=== PATIENT | female | born 1940 | race Caucasian/White ===

== ENCOUNTER 2017-05-16 08:10 | Day surgery (SDC) | payer MEDICARE, BC ==
[2017-05-16] MEDS ORDERED: Sodium Chloride 0.9% 10 ML Syringe FLUSH PRN (08:15)
[2017-05-16] MEDS ORDERED: Propofol 200 MG/20 ML SDV IV ONE (10:00)
[2017-05-16] MEDS ORDERED: Lidocaine 1% 20 ML MDV INJECT ONE (10:00)
[2017-05-16 11:25] VITALS: BP 134/72
--- NOTE | 2017-05-17 09:10 | OR ---
DATE OF OPERATION: 05/16/2017 SURGEON: Cecilio Madrid MD PREOPERATIVE DIAGNOSIS: Cataract, right eye. POSTOPERATIVE DIAGNOSIS: Cataract, right eye. OPERATION PERFORMED: Phacoemulsification of cataract right eye with placement of an Prado, model ZCB00, 23.0 diopter, foldable, posterior chamber intraocular lens. MARKETING ADMIN: None. DESCRIPTION OF PROCEDURE: Peribulbar anesthetic was performed using a mixture of 2% lidocaine with Wydase. The patient was prepped and draped in the usual fashion. A 3 mm fornix based conjunctival flap was performed at the 10 o'clock position. Hemostasis was obtained using diathermy, and a 2.8 mm grooved near clear corneal incision was then made. A stab incision was made into the anterior chamber at the 12 o'clock position and a second stab wound incision was made underlying the grooved near clear corneal incision. Viscoat was instilled into the anterior chamber, and a continuous tear capsulotomy was performed. Hydrodissection was accomplished with balanced salt solution, and the nucleus was removed in a divide and conquer fashion. The remaining cortical material was removed with the irrigation and aspiration unit. Viscoat was instilled into the anterior chamber, and an Prado, model ZCB00, 23.0 diopter, foldable, posterior chamber intraocular lens was placed into the capsular bag, the haptics being positioned at the 1 and 7 o'clock positions. The residual Viscoat was removed from the anterior chamber and the anterior chamber reformed with balanced salt solution. The wound was checked and noted to be watertight. The conjunctiva was secured in its original position with diathermy. Alphagan and Maxitrol Ointment were then placed into the patient's eye. The patient tolerated the procedure well and it was without complication. Elapsed phacoemulsification time was 20.5 seconds. Postoperative instructions as related to activities as well as medications were reviewed with the patient. The patient was instructed to return to see me on the day following surgery for the first postoperative check. The patient was also instructed to contact me prior to that time if the patient were to have any problems. /[id number] DEG/MODL CC: DIEGO MARTÍNEZ PA-C MTDD
== END 2017-05-16 11:20 | disposition home or self-care (01) ==
LOC: FB.SDS 08:10
PROVIDERS: ATTEND Ophthalmology
DX: H26.9 Unspecified cataract (principal); N18.9 Chronic kidney disease, unspecified; Z79.899 Other long term (current) drug therapy; Z98.890 Other specified postprocedural states; F17.210 Nicotine dependence, cigarettes, uncomplicated
CPT/HCPCS: 00142; 66984; A4217; C1780; J2704; J7050

== ENCOUNTER 2017-06-13 08:15 | Day surgery (SDC) | payer MEDICARE, BC ==
[~2017-06-13 08:15] MED LIST: Sodium Chloride 0.9% 10 ML Syringe FLUSH PRN
[2017-06-13] MEDS ORDERED: Propofol 200 MG/20 ML SDV IV ONE (10:00)
[2017-06-13 11:18] VITALS: BP 145/65
--- NOTE | 2017-06-14 07:29 | OR ---
DATE OF OPERATION: 06/13/2017 SURGEON: Cecilio Madrid MD PREOPERATIVE DIAGNOSIS: Cataract, left eye. POSTOPERATIVE DIAGNOSIS: Cataract, left eye. OPERATION PERFORMED: Phacoemulsification of cataract, left eye, with placement of an Prado, model ZCB00 23.5 diopter, foldable posterior chamber intraocular lens. INDUSTRIAL CONTROLLER: None. DESCRIPTION OF PROCEDURE: Peribulbar anesthetic was performed using a mixture of 2% lidocaine with Wydase. The patient was prepped and draped in the usual fashion. A 3 mm fornix based conjunctival flap was performed at the 10 o'clock position. Hemostasis was obtained using diathermy, and a 2.8 mm grooved near clear corneal incision was then made. A stab incision was made into the anterior chamber at the 12 o'clock position and a second stab wound incision was made underlying the grooved near clear corneal incision. Viscoat was instilled into the anterior chamber, and a continuous tear capsulotomy was performed. Hydrodissection was accomplished with balanced salt solution, and the nucleus was removed in a divide and conquer fashion. The remaining cortical material was removed with the irrigation and aspiration unit. Viscoat was instilled into the anterior chamber, and Prado, model ZCB00 23.5 diopter, foldable, posterior chamber intraocular lens was placed into the capsular bag, the haptics being positioned at the 1 and 7 o'clock positions. The residual Viscoat was removed from the anterior chamber and the anterior chamber reformed with balanced salt solution. The wound was checked and noted to be watertight. The conjunctiva was secured in its original position with diathermy. Alphagan and Maxitrol Ointment were then placed into the patient's eye. The patient tolerated the procedure well and it was without complication. Elapsed phacoemulsification time was 28.3 seconds. Postoperative instructions as related to activities, as well as medications, were reviewed with the patient. The patient was instructed to return to see me on the day following surgery for the first postoperative check. The patient was also instructed to contact me prior to that time if the patient were to have any problems. /[id number] DEG/MODL CC: DIEGO MARTÍNEZ PA-C MTDD
== END 2017-06-13 11:40 | disposition home or self-care (01) ==
LOC: FB.SDS 08:15
PROVIDERS: ATTEND Ophthalmology
DX: H26.9 Unspecified cataract (principal); N28.9 Disorder of kidney and ureter, unspecified; Z98.890 Other specified postprocedural states; F17.210 Nicotine dependence, cigarettes, uncomplicated; Z79.899 Other long term (current) drug therapy
CPT/HCPCS: 00142; 66984; A4217; C1780; J2704; J7050

== ENCOUNTER 2020-07-12 21:11 | Observation (INO) | payer MEDICARE, BC ==
--- NOTE | 2020-07-12 21:52 | EDM.PDOC ---
ED HPI GENERAL MEDICAL PROBLEM - General Chief Complaint: Gastrointestinal Problem Stated Complaint: RECTAL BLEEDING Time Seen by Provider: 07/12/20 21:50 Source of Information: Reports: Patient History Limitations: Reports: No Limitations - History of Present Illness INITIAL COMMENTS - FREE TEXT/NARRATIVE: 79-year-old female who reports that at a probably 1:59 PM today she had a bowel movement and she noted that it was somewhat darker than her normal bowel movements that she really didn't think much of it. She had been feeling well and has had no weakness or dizziness. She had no abdominal pain. No fevers or chills. She states that at about 7:30 to 8 PM tonight she ate a [employer] burger and following this she began to feel the urge to defecate with some mild mid abdominal cramping and she had a bowel movement and it was a large amount that was very watery and she noted that it was red appearing and that there were some clots in it and it smelled bad. She noted more with wiping. There was no pain in her perianal area. She has pain now but rates that mild cramping right before she had the bowel movement as a 1-2/10. It did not radiate. She has had no dysuria or hematuria. Bodyaches. No back pain. No cough or difficulty breathing. She feels well right now but she is somewhat concerned about the bleeding. She has never had anything like this before. She has had a colonoscopy in the past and it was reportedly negative. Since she has been in the emergency department she has had another bloody and watery stool. She states she does take Aleve, one twice daily, every day. There are no other associated signs or symptoms. There are no other modifying factors. 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: Other (see below) (Nothing.) - Related Data Allergies Allergy/AdvReac Type Severity Reaction Status Date / Time No Known Allergies Allergy Verified 07/12/20 23:30 Home Meds: Home Meds Calcium Carbonate/Vitamin D3 [Calcium 600 + Vit D Tablet] 1 each PO DAILY 05/15/17 [History] Naproxen Sodium [Aleve] 220 mg PO BID PRN 05/15/17 [History] Past Medical History HEENT History: Reports: Cataract Genitourinary History: Reports: Renal Calculus Musculoskeletal History: Reports: Other (See Below) Other Musculoskeletal History: EXTRAPYRAMIDAL DISEASE AND ABNORMAL MOVEMENT DISORDER, ARTHROPATHY ASSOCIATED WITH HELMINTHIASIS, PELVIC REGION AND THIGH, RESTLESS LEG SYNDROME Dermatologic History: Reports: Seborrheic Dermatitis, Other (See Below) Other Dermatologic History: HEALING CUT RIGH LOWER LEG - Past Surgical History HEENT Surgical History: Reports: Cataract Surgery GI Surgical History: Reports: Colonoscopy Female Surgical History: Reports: Cystoscopy, Kidney stone extraction Social & Family History - Family History Family Medical History: Noncontributory - Tobacco Use Tobacco Use Status *Q: Current Every Day Tobacco User - Caffeine Use Caffeine Use: Reports: Coffee - Alcohol Use Alcohol Use History: No - Living Situation & Occupation Living situation: Reports: Occupation: Retired ED ROS GENERAL - Review of Systems Review Of Systems: See Below Constitutional: Reports: Fatigue. Denies: Fever, Chills, Malaise HEENT: Reports: No Symptoms Respiratory: Reports: No Symptoms Cardiovascular: Reports: No Symptoms Endocrine: Reports: No Symptoms GI/Abdominal: Reports: Hematochezia. Denies: Nausea, Vomiting : Reports: No Symptoms Musculoskeletal: Reports: No Symptoms Skin: Reports: No Symptoms Neurological: Reports: No Symptoms Psychiatric: Reports: Anxiety Hematologic/Lymphatic: Reports: No Symptoms (No chronic anticoagulation.) Immunologic: Reports: No Symptoms ED EXAM, GI/ABD - Physical Exam Exam: See Below Exam Limited By: No Limitations General Appearance: Alert, WD/WN, No Apparent Distress, Anxious Eyes: Bilateral: Normal Appearance (Sclera are anicteric), EOMI Ears: Normal External Exam, Hearing Grossly Normal Nose: Normal Inspection, Normal Mucosa, No Blood Throat/Mouth: Normal Inspection, Normal Lips, Normal Oropharynx, Normal Voice, No Airway Compromise Head: Atraumatic, Normocephalic Neck: Normal Inspection, Supple, Non-Tender, Full Range of Motion Respiratory/Chest: No Respiratory Distress, Lungs Clear, Normal Breath Sounds, No Accessory Muscle Use, Chest Non-Tender Cardiovascular: Normal Peripheral Pulses, Regular Rate, Rhythm, No Murmur GI/Abdominal Exam: Normal Bowel Sounds, Soft, Non-Tender, No Organomegaly, No Mass Rectal (Female) Exam: Bloody Stool Back Exam: Normal Inspection, Full Range of Motion Extremities: Normal Range of Motion, Non-Tender, No Pedal Edema, Normal Capillary Refill, Other (Some chronic venous stasis on both lower legs anteriorly.) Neurological: Alert, Oriented, CN II-XII Intact, Normal Cognition, No Motor/Sensory Deficits Psychiatric: Normal Affect Skin Exam: Warm, Dry, Intact, Normal Color, No Rash #1 Interpretation EKG Date: 07/13/20 Time: 00:57 Rhythm: NSR Rate (Beats/Min): 81 [place]: Normal P-Wave: Present QRS: Normal ST-T: Normal QT: Normal Comparison: NA - No Prior EKG EKG Interpretation Comments: Normal EKG. Course - Vital Signs Last Recorded V/S: Last Vital Signs Temp 36.6 C 07/12/20 21:56 Pulse 94 07/12/20 21:56 Resp 16 07/12/20 21:56 BP 160/70 H 07/12/20 21:56 Pulse Ox 98 07/12/20 21:56 Orthostatic Blood Pressure [ 157/67 Standing] Orthostatic Blood Pressure [ 141/79 Sitting] Orthostatic Blood Pressure [ 151/72 Supine] - Orders/Labs/Meds Orders: Active Orders 24 hr Category Date Time Status EKG Documentation Completion [RC] ASDIRECTED Care 07/13/20 00:38 Active Abdomen Pelvis w Cont [CT] Stat Exams 07/12/20 23:14 Taken Sodium Chloride 0.9% [Saline Flush] Med 07/12/20 21:56 Active 10 ml FLUSH ASDIRECTED PRN Peripheral IV Insertion Adult [OM.PC] Routine Oth 07/12/20 21:56 Ordered EKG 12 Lead [EK] Routine Ther 07/13/20 00:37 Ordered Medication Orders Sodium Chloride (Saline Flush) 10 ml FLUSH ASDIRECTED PRN PRN Reason: Keep Vein Open Last Admin: 07/12/20 22:29 Dose: 10 ml Documented by: SAPNA Labs: Laboratory Tests 07/12/20 07/12/20 07/12/20 Range/Units 22:25 22:25 22:25 WBC 10.7 (4.5-12.0) X10-3/uL RBC 4.92 (3.23-5.20) x10(6)uL Hgb 15.3 (11.5-15.5) g/dL Hct 44.9 (30.0-51.3) % MCV 91.3 (80-96) fL MCH 31.1 (27.7-33.6) pg MCHC 34.1 (32.2-35.4) g/dL RDW 13.8 (11.5-15.5) % Plt Count 243 (125-369) X10(3)uL MPV 8.9 (7.4-10.4) fL Neut % (Auto) 67.5 (46-82) % Lymph % (Auto) 19.7 (13-37) % [place] % (Auto) 8.9 (4-12) % Eos % (Auto) 3 (1.0-5.0) % Baso % (Auto) 1 (0-2) % Neut # (Auto) 7.2 (1.6-8.3) # Lymph # (Auto) 2.1 (0.6-5.0) # [place] # (Auto) 1.0 (0.0-1.3) # Eos # (Auto) 0.3 (0.0-0.8) # Baso # (Auto) 0.1 (0.0-0.2) # Sodium 140 (135-145) mmol/L Potassium 4.3 (3.5-5.3) mmol/L Chloride 104 (100-110) mmol/L Carbon Dioxide 28 (21-32) mmol/L BUN 31 H (7-18) mg/dL Creatinine 1.1 H (0.55-1.02) mg/dL Est Cr Clr Drug Dosing 37.55 mL/min Estimated GFR (MDRD) 48 L (>60) BUN/Creatinine Ratio 28.2 H (9-20) Glucose 150 H (80-116) mg/dL Calcium 9.6 (8.6-10.2) mg/dL Magnesium 1.9 (1.8-2.5) mg/dL Total Bilirubin 0.4 (0.1-1.3) mg/dL AST 11 (5-25) IU/L ALT 15 (12-36) U/L Alkaline Phosphatase 81 (56-112) IU/L C-Reactive Protein 0.4 L (0.5-0.9) mg/dL Total Protein 6.6 (6.0-8.0) g/dL Albumin 3.3 (3.2-4.6) g/dL Globulin 3.3 g/dL Albumin/Globulin Ratio 1.0 Blood Type Gel Antibody Screen 07/12/20 Range/Units 22:25 WBC (4.5-12.0) X10-3/uL RBC (3.23-5.20) x10(6)uL Hgb (11.5-15.5) g/dL Hct (30.0-51.3) % MCV (80-96) fL MCH (27.7-33.6) pg MCHC (32.2-35.4) g/dL RDW (11.5-15.5) % Plt Count (125-369) X10(3)uL MPV (7.4-10.4) fL Neut % (Auto) (46-82) % Lymph % (Auto) (13-37) % [place] % (Auto) (4-12) % Eos % (Auto) (1.0-5.0) % Baso % (Auto) (0-2) % Neut # (Auto) (1.6-8.3) # Lymph # (Auto) (0.6-5.0) # [place] # (Auto) (0.0-1.3) # Eos # (Auto) (0.0-0.8) # Baso # (Auto) (0.0-0.2) # Sodium (135-145) mmol/L Potassium (3.5-5.3) mmol/L Chloride (100-110) mmol/L Carbon Dioxide (21-32) mmol/L BUN (7-18) mg/dL Creatinine (0.55-1.02) mg/dL Est Cr Clr Drug Dosing mL/min Estimated GFR (MDRD) (>60) BUN/Creatinine Ratio (9-20) Glucose (80-116) mg/dL Calcium (8.6-10.2) mg/dL Magnesium (1.8-2.5) mg/dL Total Bilirubin (0.1-1.3) mg/dL AST (5-25) IU/L ALT (12-36) U/L Alkaline Phosphatase (56-112) IU/L C-Reactive Protein (0.5-0.9) mg/dL Total Protein (6.0-8.0) g/dL Albumin (3.2-4.6) g/dL Globulin g/dL Albumin/Globulin Ratio Blood Type A POSITIVE Gel Antibody Screen Negative Meds: Medications Generic Name Dose Route Start Last Admin Trade Name Addison PRN Reason Stop Dose Admin Sodium Chloride 10 ml 07/12/20 21:56 07/12/20 22:29 Saline Flush FLUSH 10 ml ASDIRECTED PRN Administration Keep Vein Open Discontinued Medications Generic Name Dose Route Start Last Admin Trade Name Freq PRN Reason Stop Dose Admin Sodium Chloride 500 mls @ 999 mls/hr 07/12/20 23:15 07/12/20 23:41 Normal Saline IV 07/12/20 23:45 999 mls/hr .BOLUS ONE Administration Iopamidol 100 ml 07/12/20 23:17 07/12/20 23:32 Isovue-370 (76%) IV 07/12/20 23:18 100 ml . DIRECTED ONE Administration Pantoprazole Sodium 40 mg 07/13/20 00:38 Protonix Iv IVPUSH 07/13/20 00:39 ONETIME ONE - Radiology Interpretation Free Text/Narrative:: CT scan of the abdomen and pelvis shows colonic diverticulosis without diverticulitis. There was no evidence of appendicitis or bowel obstruction. There is wall thickening of a segment of the mid transverse colon that could be do to either a colonic lesion or colitis. There is also mild mucosal enhancement in the duodenal bulb and proximal descending duodenum reassociated with either peptic ulcer disease or duodenitis. There was also some high density within the renal collecting systems that was concerning for either contrast or blood products and the radiologist recommended further urologic evaluation to exclude neoplasm. - Re-Assessments/Exams Free Text/Narrative Re-Assessment/Exam: 07/13/20 23:00: The patient has had one other bright red blood and watery stool and she remained hemodynamically stable. The stool was sent for C. difficile testing. I will be sending the patient for CT scan of her abdomen and pelvis with IV contrast. 07/13/20 00:40: The CT scan of the abdomen and pelvis did show some findings that could either be colitis or a colonic lesion. There is also some concern about a duodenal problem and a urothelial problem. The patient has had one further bloody stool which was very minimal and only a small amount of blood with air. She remains pretty much symptom free with no pain now and no weakness or dizziness. The C. difficile was also negative. Because of the number of bright red blood stools that she has had, I feel that she should be admitted for continued close observation and serial hemoglobins I will give the patient protonic 40 mg IV. I discussed all this with the patient and she would be in agreement with this plan. It is unclear at this point as to whether the patient will need a greater then 2 midnight hospital stay. She does need close monitoring over the next 12-24 hours and she may need further GI evaluation. I discussed this with the patient and she would be in agreement with this. I will place admission orders and care the patient will go to Dr. Mcgarry at 7 AM on 07/13/2020. Departure - Departure Time of Disposition: 01:03 Disposition: Refer to Observation Condition: Fair (Stable) Clinical Impression: Rectal bleeding GI hemorrhage Qualifiers: GI bleed type/associated pathology: unspecified gastrointestinal hemorrhage type Qualified Code(s): K92.2 - Gastrointestinal hemorrhage, unspecified - Discharge Information Referrals: Esdras Salter MD [Primary Care Provider] - Forms: ED Department Discharge Sepsis Event Note (ED) - Focused Exam Vital Signs: Vital Signs Temp Pulse Resp BP Pulse Ox 07/12/20 21:56 36.6 C 94 16 160/70 H 98 07/12/20 21:22 36.6 C 100 16 149/70 H 98 07/12/20 21:13 36.6 C 98 16 149/70 H 98 - My Orders Last 24 Hours: My Active Orders 07/12/20 21:56 Sodium Chloride 0.9% [Saline Flush] 10 ml FLUSH ASDIRECTED PRN Peripheral IV Insertion Adult [OM.PC] Routine 07/12/20 23:14 Abdomen Pelvis w Cont [CT] Stat 07/13/20 00:37 EKG 12 Lead [EK] Routine 07/13/20 00:38 EKG Documentation Completion [RC] ASDIRECTED - Assessment/Plan Last 24 Hours: My Active Orders 07/12/20 21:56 Sodium Chloride 0.9% [Saline Flush] 10 ml FLUSH ASDIRECTED PRN Peripheral IV Insertion Adult [OM.PC] Routine 07/12/20 23:14 Abdomen Pelvis w Cont [CT] Stat 07/13/20 00:37 EKG 12 Lead [EK] Routine 07/13/20 00:38 EKG Documentation Completion [RC] ASDIRECTED
[2020-07-12] MEDS: Sodium Chloride 0.9% 10 ML Syringe FLUSH PRN (22:29)
[2020-07-12] MEDS ORDERED: Sodium Chloride 0.9% 500 ML IV ONE (23:15)
[2020-07-12] MEDS ORDERED: Iopamidol 755 Mg/ML 100 ML Bottle IV ONE (23:17)
[2020-07-13] MEDS ORDERED: Pantoprazole 40 MG Vial IVPUSH ONE (00:38)
[2020-07-13] MEDS ORDERED: Ondansetron 4 MG/2 ML SDV IV PRN (01:06)
[2020-07-13] MEDS ORDERED: Sodium Chloride 0.9% 1,000 ML IV SCH (01:15)
[2020-07-13] MEDS ORDERED: Pantoprazole 40 MG Vial IVPUSH SCH (12:00)
[2020-07-13] MEDS: Sodium Chloride 0.9% 10 ML Syringe FLUSH PRN (12:28)
--- NOTE | 2020-07-13 13:21 | HP ---
ADMISSION DATE: 07/13/2020 CHIEF COMPLAINT: Bloody stool. HISTORY OF PRESENT ILLNESS: Mrs. Foley is an 79-year-old woman from [place] with a history of osteoarthritis and otherwise excellent health. According to the patient, yesterday, she noted a dark stool in the morning and then, later in the afternoon, a very, very dark stool that she thought was very unusual. When she flushed the toilet, she noted some blood coming out of the stool. Along with this, she had some epigastric cramping and general unsettled feeling to her abdomen. She came into the emergency room where she was evaluated by Dr. Jones and found to be hemodynamically stable, but she had to 2 additional bloody stools while in the emergency room. She is examined this morning in her bed and is bright, alert, a good historian, and feels healthy. She has been taking Aleve 1 to 2 daily for the past few years for her arthritis. She is on no other medications. She has no prior history of stomach ulcer, bleeding disorder, etc. PAST MEDICAL HISTORY: Osteoarthritis, worst in her left hip, but also includes her right hip and her lumbar spine. She has a history of a large kidney stone in 2010 that required 2 open surgeries, a lithotripsy, and a ureteroscopy. No subsequent problems since that. She is 5, para 5, with normal deliveries. No blood transfusions, jaundice, or hepatitis. MEDICATIONS: Aleve 1 to 2 daily. ALLERGIES: None known. HABITS: Two to three cigarettes per day. Four to five cups of coffee per day. No alcohol. FAMILY HISTORY: The patient's father at age 77 of an MN. Mother at age 71 of a stroke. She has 2 brothers who of COPD. One brother of an [place], and one brother of cancer. One sister at age 20 of nephritis, and a sister is aged 77 and has diabetes and stroke. SOCIAL HISTORY: The patient has been for 62 years. She has 5 children, multiple grandchildren, and 5 great-grandchildren. Her retired from a hardware store. They live in [place]. REVIEW OF SYSTEMS: GENERAL: No seizure, syncope, or recent significant weight change. SKIN: Negative for rash. HEENT: No recent changes in hearing or vision. She states that her hearing is slowly declining, however. No sore throat or URI. She does have an occasional cough that she attributes to her smoking. CHEST: No chest pain or palpitations. ABDOMEN: No current abdominal pain, nausea, or constipation. MUSCULOSKELETAL: No joint inflammation, swelling, or skin rash. PHYSICAL EXAMINATION: GENERAL: She is alert and comfortable. She is a good historian. VITAL SIGNS: Blood pressure 138/79, pulse 87, respirations normal, and O2 saturation 98% on room air. Weight 175 pounds. SKIN: Anicteric, warm, and dry without rash or sign of trauma. HEENT. TMs are clear. Pupils are equal and reactive. Oropharynx is clear with partial dentures. LUNGS: Clear to the bases. HEART: Regular without murmur, rub, or gallop. ABDOMEN: Normal bowel sounds. Soft and nontender. No masses. No organomegaly. EXTREMITIES: No edema. She has excellent pulses. She has dry skin and tenderness over the anterior shins bilaterally. LABORATORY DATA: Hemoglobin on presentation 15.3 and repeated this morning 14.7. Electrolytes normal. Creatinine 0.9. CT of the abdomen showed potential inflammatory changes in her intestine. ASSESSMENT: 1. Gastrointestinal bleed that she describes first as melena and then maroon- colored stool. I suspect this is gastritis/peptic ulcer disease secondary to her Aleve use. 2. Osteoarthritis. 3. Smoker with potential chronic obstructive pulmonary disease. PLAN: She has received IV Protonix. We will switch her to oral Protonix, advance her diet, and if stable, she may go home later today for followup as an outpatient. /[id number] RO/DISHAL
[2020-07-14] MEDS ORDERED: Pantoprazole 40 MG Tab.CR PO SCH (09:30)
--- NOTE | 2020-07-14 11:16 | DISCH ---
DISCHARGE DATE: 07/14/2020 PRIMARY FINAL DIAGNOSIS: Upper gastrointestinal bleed secondary to gastritis due to NSAID. OPERATIONS: None. COMPLICATIONS: None. SUMMARY: Ms. Foley is an 79-year-old woman with history of osteoarthritis who came in through the emergency room because of rectal bleeding. She described 2 very dark, nearly black stools as an outpatient subsequently with conversion to red stool. She was evaluated in the emergency room and had 2 more bloody stools while there, so she was admitted to the hospital. Her naproxen was discontinued and she was treated with IV Protonix. She had 2 additional bloody stools on the day of admission and none since that. She is feeling quite improved this morning with no bloody stools overnight or this morning. No abdominal pain. Laboratory came in at a hemoglobin of 14.7 yesterday and down to 13.6 today. Electrolytes normal. She was deemed strong enough for discharge and is sent home in good condition to continue the following medications: 1. Protonix 40 mg p.o. daily x1 month. 2. She is to discontinue all use of naproxen and NSAIDs. 3. She may resume her calcium tablet. She is asked to have a followup appointment in 1 to [address] Mckeon. Rebecca paez /[id number] DOMENICA/ALAN
[2020-07-14 14:31] VITALS: BP 125/64; PULSE 85
== END 2020-07-14 11:50 | disposition home or self-care (01) ==
LOC: FB.ED 21:11 → FB.MS 07-13 01:06
PROVIDERS: ADMIT Emergency Medicine; ATTEND Family Medicine
DX: K29.71 Gastritis, unspecified, with bleeding (principal); M19.90 Unspecified osteoarthritis, unspecified site; F17.200 Nicotine dependence, unspecified, uncomplicated; J44.9 Chronic obstructive pulmonary disease, unspecified
CPT/HCPCS: 36415; 74177; 80048; 80053; 82272; 83735; 85018; 85025; 86140; 86850; 86900; 86901; 87230; 93005; 96361; 96374; 99285; A9270; C9113; J7030; J7040; Q9967